=== PATIENT | male | born 1990 | race Caucasian/White ===

== ENCOUNTER → 2020-06-17 15:15 | Outpatient (BNVA) | payer OTHER, SELFPAY | PROVIDERS: Family Provider General Practice; PCP General Practice; Visit Provider Internal Medicine | DX: B34.9 Viral infection, unspecified (principal) | CPT/HCPCS: 87635 ==

== ENCOUNTER 2021-10-20 07:06 | Outpatient (CLI) | payer OTHER, SELFPAY ==
--- NOTE | 2021-10-20 07:13 | US_ITS ---
WS: [id number] ULTRASOUND ABDOMEN LIMITED CLINICAL INFORMATION: ELEVATED LIVER LEVELS COMPARISON: None. FINDINGS: Liver Size: Enlarged Craniocaudal length: 17.6 cm. Echogenicity: Coarse Surface nodularity: None. Mass (size and location): None. Bile ducts Intrahepatic ducts: Normal. Common bile duct diameter: 0.3 cm. Gallbladder Normal. Gallstones: None. Gallbladder sludge: None. Gallbladder wall thickening: None. Pericholecystic fluid: None. Sonographic Tolentino sign: Absent. Pancreas Normal as visualized. Right kidney: Normal. Hydronephrosis: None. Size: 10.2 cm x 4.9 cm x 5.4 cm. Abdominal aorta and IVC Visualized portions are normal. Ascites: None. US/US liver [id number] IMPRESSION: 1. Hepatomegaly with diffuse fatty infiltration. 2. Normal gallbladder. 3. No hydronephrosis in right kidney.
== END 2021-10-20 07:07 | disposition home or self-care (01) ==
LOC: RAD 07:09
PROVIDERS: PCP General Practice; Visit Provider Family Medicine
DX: R74.01 Elevation of levels of liver transaminase levels (principal); R16.0 Hepatomegaly, not elsewhere classified; K76.0 Fatty (change of) liver, not elsewhere classified
CPT/HCPCS: 76705; 93976

== ENCOUNTER → 2022-08-26 08:00 | Outpatient (BNVA) | payer OTHER, SELFPAY | PROVIDERS: PCP Family Medicine; Visit Provider Family Medicine | DX: Z00.00 Encounter for general adult medical examination without abnormal findings (principal); Z51.81 Encounter for therapeutic drug level monitoring; Z13.220 Encounter for screening for lipoid disorders; E78.1 Pure hyperglyceridemia; K40.90 Unilateral inguinal hernia, without obstruction or gangrene, not specified as recurrent | CPT/HCPCS: 80053; 80061; 85025 ==

== ENCOUNTER → 2022-12-07 09:23 | Outpatient (BNVA) | payer OTHER, SELFPAY | PROVIDERS: PCP Family Medicine; Visit Provider Family Medicine | DX: R74.01 Elevation of levels of liver transaminase levels (principal); E78.1 Pure hyperglyceridemia; F41.9 Anxiety disorder, unspecified; Z13.220 Encounter for screening for lipoid disorders; Z51.81 Encounter for therapeutic drug level monitoring | CPT/HCPCS: 80053; 80061 ==

== ENCOUNTER → 2023-02-01 08:02 | Outpatient (BNVA) | payer OTHER, SELFPAY | PROVIDERS: PCP Family Medicine; Visit Provider Family Medicine | DX: Z00.00 Encounter for general adult medical examination without abnormal findings (principal); R74.8 Abnormal levels of other serum enzymes; Z51.81 Encounter for therapeutic drug level monitoring; R74.01 Elevation of levels of liver transaminase levels; Z13.220 Encounter for screening for lipoid disorders; E78.1 Pure hyperglyceridemia | CPT/HCPCS: 80053; 80061; 80074; 82550; 82552; 85651 ==

== ENCOUNTER → 2023-09-30 08:18 | Outpatient (BNVA) | payer OTHER, SELFPAY | PROVIDERS: PCP Family Medicine | DX: Z13.220 Encounter for screening for lipoid disorders (principal); Z51.81 Encounter for therapeutic drug level monitoring; R74.01 Elevation of levels of liver transaminase levels | CPT/HCPCS: 80053; 80061; 82977; 85025 ==

== ENCOUNTER → 2024-05-10 08:21 | Outpatient (BNVA) | payer OTHER, SELFPAY | PROVIDERS: PCP Family Medicine; Visit Provider Family Medicine | DX: Z51.81 Encounter for therapeutic drug level monitoring (principal); Z13.220 Encounter for screening for lipoid disorders | CPT/HCPCS: 80053; 80061; 83721 ==

== ENCOUNTER → 2024-08-30 10:24 | Outpatient (BNVA) | payer OTHER, SELFPAY | PROVIDERS: PCP Family Medicine; Visit Provider Family Medicine | DX: Z51.81 Encounter for therapeutic drug level monitoring (principal); Z13.220 Encounter for screening for lipoid disorders; Z00.00 Encounter for general adult medical examination without abnormal findings | CPT/HCPCS: 80053; 80061; 83721; 84443; 85025 ==

== ENCOUNTER 2024-11-23 10:36 | Outpatient (CLI) | payer OTHER, SELFPAY ==
--- NOTE | 2024-11-23 10:54 | CT_ITS ---
WS: [id number] CT TEMPORAL BONES TECHNIQUE: Noncontrast CT of the temporal bones with coronal and sagittal reformatted images. CLINICAL INFORMATION: SENSORINEURAL HEARING LOSS OF BOTH EARS. DLP: 329.[address] scans at [facility] use at least one of these dose optimization techniques: automated e xposure control; mA and/or kV adjustment per patient size (includes targeted exams where dose is matc hed to clinical indication); or iterative reconstruction. FINDINGS: RIGHT: Mastoid air cells are well aerated. Normal external auditory canal. Ossicles are normal in appearance . Middle ear is well aerated. Normal tegmen tympani. Semicircular canals and cochlea are normal in ap pearance. Prussak's space is normal. LEFT: Mastoid air cells are well aerated. Normal external auditory canal. Ossicles are normal in appearance . Middle ear is well aerated. Normal tegmen tympani. Semicircular canals and cochlea are normal in ap pearance. Prussak's space is normal. CT/CT temporal bone wo con* [id number] IMPRESSION: 1. Mastoid air cells and middle ear are well aerated bilaterally. 2. Ossicles are normal in appearance. 3. Inner ear structures appear grossly normal. 4. Images obtained for preoperative cochlear implant purposes
--- NOTE | 2024-11-23 10:56 | MR_ITS ---
WS: [id number] MRI BRAIN WITH HIGH-RESOLUTION IMAGING THROUGH THE INTERNAL AUDITORY CANALS WITHOUT AND WITH CONTRAST HISTORY: SENSORINEURAL HEARING LOSS OF BOTH EARS COMPARISON: None available. TECHNIQUE: Multiplanar, multisequence imaging is performed through the brain. Additional 3 mm imaging performed in multiple planes through the internal auditory canal. Postcontrast imaging with 20 ml's of MultiHance. No acute intracranial hemorrhage, midline shift, edema or mass effect. No volume loss or atrophy. No prior infarct. No significant small vessel ischemic disease. Normal cer ebellum. No prior infarct at the alyssa. Ventricles and extra-axial spaces are normal. No inferior displacement of cerebellar tonsils. Clivus and pituitary gland are normal. Internal and external auditory canals: Unremarkable. Cranial nerves VII and VIII complexes: Unremarkable. No enhancement or mass. Cerebellopontine angles: Normal. Paranasal sinuses: Normal. Mastoid air cells: Normal. Calvarium and scalp: Normal. Visualized [place] and dural venous sinuses demonstrate no abnormality. MR/MR iac's wo/w con* [id number] IMPRESSION: Normal MRI IACs.
[2024-11-23] MEDS: gadobenate dimeglumine 20 mL vial IV (12:26)
== END 2024-11-23 10:37 | disposition home or self-care (01) ==
PROVIDERS: PCP Family Medicine; Visit Provider Family Medicine
DX: H90.3 Sensorineural hearing loss, bilateral (principal)
CPT/HCPCS: 70480; 70553

== ENCOUNTER 2025-08-30 14:17 | Outpatient (CLI) | payer OTHER, SELFPAY ==
[2025-08-30 14:53] LABS: Sperm Count 0.0150 mill/mL (40-160); Sperm Immotility 50 % (50-60); Sperm Progressive Motility 50 % (31-34)
== END 2025-08-30 14:18 | disposition home or self-care (01) ==
LOC: LAB 14:20
PROVIDERS: PCP Family Medicine; Visit Provider Urology
DX: Z30.09 Encounter for other general counseling and advice on contraception (principal)
CPT/HCPCS: 89310

== ENCOUNTER → 2025-08-31 07:59 | Outpatient (BNVA) | payer OTHER, SELFPAY | PROVIDERS: PCP Family Medicine; Visit Provider Family Medicine | DX: Z13.6 Encounter for screening for cardiovascular disorders (principal); E78.1 Pure hyperglyceridemia; Z00.00 Encounter for general adult medical examination without abnormal findings; Z51.81 Encounter for therapeutic drug level monitoring | CPT/HCPCS: 80053; 80061; 83721; 85025 ==

== ENCOUNTER 2025-09-28 14:31 | Outpatient (CLI) | payer OTHER, SELFPAY ==
[2025-09-28 14:51] LABS: Sperm Count 0.0000 mill/mL (40-160)
== END 2025-09-28 14:32 | disposition home or self-care (01) ==
LOC: LAB 14:31
PROVIDERS: PCP Family Medicine; Visit Provider Urology
DX: Z98.52 Vasectomy status (principal); Z30.09 Encounter for other general counseling and advice on contraception
CPT/HCPCS: 89310

== ENCOUNTER 2025-10-24 07:07 | Outpatient (CLI) | payer OTHER, SELFPAY ==
--- NOTE | 2025-10-24 07:15 | US_ITS ---
WS: [id number] RIGHT UPPER QUADRANT ULTRASOUND HISTORY: Elevated transaminases COMPARISON: 10/20/2021 Liver: 15.8 cm in length. Normal size liver and echogenicity. No bile duct dilatation or mass. Portal Vein: Normal hepatopetal flow with monophasic waveform. Gallbladder: Normally distended gallbladder with no stones or wall thickening. CBD: 0.3 cm Pancreas: Normal size and echogenicity. Right kidney: 10.6 cm in length. Normal size and echogenicity. No hydronephrosis or mass. Aorta and IVC: Unremarkable abdominal aorta and IVC. No ascites. US/US liver [id number] IMPRESSION: Normal right upper quadrant ultrasound. Liver measures normal in size on today' s exam. Normal gallbladder.
== END 2025-10-24 07:08 | disposition home or self-care (01) ==
LOC: RAD 07:07
PROVIDERS: PCP Family Medicine; Visit Provider Family Medicine
DX: R74.01 Elevation of levels of liver transaminase levels (principal)
CPT/HCPCS: 76705